=== PATIENT | male | born 1975 | race Caucasian/White ===

== ENCOUNTER 2017-12-07 10:10 | Emergency (ER) | payer MEDICAID, OTHER ==
--- NOTE | 2017-12-07 10:44 | ED Physician Documentation ---
PD HPI CHEST PAIN - Stated complaint Stated Complaint: CHEST PX - Chief complaint Chief Complaint: Cardiac - History obtained from History obtained from: Patient - History of Present Illness Timing - onset: Other (1 month ago) Timing - onset during: Rest Timing - duration: Seconds Timing - details: Abrupt onset Pain level max: 3 Pain level now: 0 Quality: Sharp Location: Left chest, Right chest Radiation: Other (non-radiating) Improved by: Nothing Worsened by: Other (nothing) Associated symptoms: No: Shortness of air, Diaphoresis, Nausea, Vomiting, Feeling faint / dizzy, General Weakness, Palpitations, Cough Similar symptoms before: Has not had sx before Recently seen: Not recently seen - Additional information Additional information: Patient states that for the past month or so he has felt "fluttering in his chest" and "electrical shocks". These last for a few seconds at a time. Currently asymptomatic. Has not seen a physician for this. No cardiac history. Does use marijuana daily for insomnia. States he is quitting smoking cigarettes and rarely uses alcohol. No medications at home. States he drinks approximately 20 ounces of coffee in the morning Review of Systems Constitutional: denies: Fever, Chills Ears: denies: Ear pain Nose: denies: Rhinorrhea / runny nose, Congestion Throat: denies: Sore throat Cardiac: denies: Chest pain / pressure Respiratory: denies: Cough GI: denies: Abdominal Pain, Nausea, Vomiting, Diarrhea : denies: Dysuria Skin: denies: Rash Musculoskeletal: denies: Neck pain, Back pain Neurologic: denies: Focal weakness, Headache PD PAST MEDICAL HISTORY - Past Medical History Past Medical History: Yes Respiratory: Asthma GI: Diverticulitis - Past Surgical History Past Surgical History: Yes General: Appendectomy, Hiatal hernia repair - Allergies Allergies/Adverse Reactions: Allergies Allergy/AdvReac Type Severity Reaction Status Date / Time No Known Drug Allergies Allergy Verified 12/07/17 10:25 - Social History Does the pt smoke?: Yes Smoking Status: Current every day smoker Does the pt drink ETOH?: Yes Does the pt have substance abuse?: No Substance Use and Type: Marijuana - Immunizations Immunizations are current?: Yes PD ED PE NORMAL - Vitals Vital signs reviewed: Yes - General General: Alert and oriented X 3, No acute distress - HEENT HEENT: Moist mucous membranes - Neck Neck: Supple, no meningeal sign - Cardiac Cardiac: RRR, No murmur, Strong equal pulses - Respiratory Respiratory: No respiratory distress, Clear bilaterally - Abdomen Abdomen: Soft, Non tender, Non distended - Derm Derm: Warm and dry, No rash - Neuro Neuro: Alert and oriented X 3 - Psych Psych: Normal mood, Normal affect Results - Vitals Vitals: Vital Signs - 24 hr 12/07/17 12/07/17 10:17 11:43 Temperature 36.8 C 36.4 C L Heart Rate 85 64 Respiratory 20 16 Rate Blood Pressure 135/83 H 104/84 H O2 Saturation 100 64 L Oxygen O2 Source Room air - EKG (time done) 1018 Rate: Rate (enter#) (84) Rhythm: NSR [place]: Normal Intervals: Other (short SC) QRS: Normal Ischemia: Normal ST segments - Labs Labs: Laboratory Tests 12/07/17 12/07/17 12/07/17 10:36 10:36 10:36 WBC 11.1 H RBC 4.57 L Hgb 14.4 Hct 43.1 MCV 94.4 H MCH 31.6 H MCHC 33.4 RDW 13.3 Plt Count 340 MPV 7.4 Neut # 6.7 H Lymph # 3.4 [facility] # 0.6 Eos # 0.3 Baso # 0.1 Absolute Nucleated RBC 0.00 Nucleated RBC % 0.0 Sodium 136 Potassium 4.2 Chloride 101 Carbon Dioxide 27 Anion Gap 8.0 BUN 12 Creatinine 0.9 Estimated GFR (MDRD) 92 Glucose 98 Calcium 9.2 Total Bilirubin 1.0 AST 20 ALT 16 Alkaline Phosphatase 48 Troponin I < 0.04 Total Protein 7.9 Albumin 4.4 Globulin 3.5 Albumin/Globulin Ratio 1.3 Lipase 34 - Rads (name of study) cxr Radiology: Prelim report reviewed, EMP read contemporaneously, See rad report ( no acute disease) PD MEDICAL DECISION MAKING - ED course Complexity details: reviewed results, re-evaluated patient, considered differential (No ST elevation AL, no aortic dissection, no PE, no tension pneumothorax, no aortic aneurysm), d/w patient ED course: Patient is a 42-year-old male who presents to the emergency department with atypical chest pain. This is been ongoing for over a month. Negative troponin. No acute lab abnormalities, EKG abnormalities or radiographic abnormalities. We will have him follow-up with his doctor for further evaluation and care. Patient counseled regarding signs and symptoms for which I believe and urgent re -evaluation would be necessary. Patient with good understanding of and agreement to plan and is comfortable going home at this time This document was made in part using voice recognition software. While efforts are made to proofread this document, sound alike and grammatical errors may occur. Discharge pulse ox was 96, not 64 Departure - Departure Disposition: Home, Self Care Clinical Impression: Chest pain Qualifiers: Chest pain type: unspecified Qualified Code(s): R07.9 - Chest pain, unspecified Condition: Good Instructions: ED Chest Pain Atypical Unkn Cause Follow-Up: your,doctor in 1 week [Other] Comments: The cause of your symptoms is unclear today. You may benefit from a Holter monitor to see if you are having any cardiac arrhythmias and this can be prescribed by your doctor. Return if you worsen. Discharge Date/Time: 12/07/17 11:44
[2017-12-07 10:46] LABS: BASOPHILS # (AUTO) 0.1 10^3/uL (0.0-0.1); BASOPHILS % (AUTO) 1.1 %; EOSINOPHILS # (AUTO) 0.3 10^3/uL (0.0-0.7); EOSINOPHILS % (AUTO) 2.8 %; HGB - HEMOGLOBIN 14.4 g/dL (14.0-18.0); LYMPHOCYTES # (AUTO) 3.4 10^3/uL (1.5-3.5); LYMPHOCYTES % (AUTO) 30.4 %; MEAN CORPUSCULAR HEMOGLOBIN 31.6 pg (27.0-31.0); MEAN CORPUSCULAR HGB CONC 33.4 g/dL (32.0-36.0); MEAN CORPUSCULAR VOLUME 94.4 fL (80.0-94.0); MEAN PLATELET VOLUME 7.4 fL (7.4-11.4); MONOCYTES # (AUTO) 0.6 10^3/uL (0.0-1.0); MONOCYTES % (AUTO) 5.1 %; NEUTROPHILS # (AUTO) 6.7 10^3/uL (1.5-6.6); NEUTROPHILS % (AUTO) 60.6 %; PLT - PLATELET COUNT 340 10^3/uL (130-450); RED BLOOD COUNT 4.57 10^6/uL (4.70-6.10); RED CELL DISTRIBUTION WIDTH 13.3 % (12.0-15.0); WHITE BLOOD COUNT 11.1 x10^3/uL (4.8-10.8)
[2017-12-07 11:00] LABS: ALBUMIN 4.4 g/dL (3.2-5.5); ALBUMIN/GLOBULIN RATIO 1.3 (1.0-2.2); CALCIUM 9.2 mg/dL (8.5-10.3); CREATININE 0.9 mg/dL (0.6-1.2); TOTAL PROTEIN 7.9 g/dL (6.7-8.2)
--- NOTE | 2017-12-07 11:13 | XRAY Report ---
EXAM: CHEST RADIOGRAPHY EXAM DATE: 12/07/2017 10:44 AM. CLINICAL HISTORY: Chest pain. COMPARISON: 08/21/2012. TECHNIQUE: 1 view. FINDINGS: Lungs/Pleura: Stable hyperinflation. No focal infiltrate or vascular congestion. Similar mild bronchi al wall thickening bilaterally. No pleural effusion or pneumothorax. Mediastinum: Normal cardiomediastinal silhouette. Bones: No fracture or significant findings identified. IMPRESSION: 1. Stable hyperinflation. 2. Chronic mild bronchial wall thickening could be seen with RAD. No consolidation. [facility] Referring Provider Line: [phone] SITE ID: [id number]
--- NOTE | 2017-12-07 11:13 | XRAY Preliminary Report ---
Exam: XR CHEST 1 VIEW X-RAY IMPRESSION: 1. Stable hyperinflation. 2. Chronic mild bronchial wall thickening could be seen with RAD. No consolidation. [facility] SITE ID: [id number]
[2017-12-07 11:44] VITALS: BP 104/84
== END 2017-12-07 11:44 | disposition home or self-care (01) ==
LOC: ED 10:10
DX: R07.89 Other chest pain (principal); G47.00 Insomnia, unspecified; F12.90 Cannabis use, unspecified, uncomplicated; J45.909 Unspecified asthma, uncomplicated; Z87.19 Personal history of other diseases of the digestive system; Z87.891 Personal history of nicotine dependence
CPT/HCPCS: 36415; 71045; 80053; 83690; 84484; 85025; 93005; 99283; 99284

== ENCOUNTER 2018-06-18 16:26 | Emergency (ER) | payer MEDICAID, OTHER ==
[2018-06-18 16:38] VITALS: BP 115/85
--- NOTE | 2018-06-18 16:51 | ED Physician Documentation ---
PD HPI LOWER EXT INJURY - Stated complaint Stated Complaint: R KNEE INJURY - Chief complaint Chief Complaint: Ext Problem - History obtained from History obtained from: Patient - History of Present Illness PD HPI LOW EXT INJURY LOCATION: Left, Knee Type of injury: Blunt / blow Where injury occurred: Work Timing - onset: Today Timing - duration: Hours Timing - details: Abrupt onset, Still present Improved by: Rest, Immobilization Worsened by: Moving, Palpating Associated symptoms: Swelling. No: Weakness, Numbness, Tingling Contributing factors: Prior ortho surgery. No: Anticoagulated Similar symptoms before: Diagnosis (patellar dislocation) Recently seen: Not recently seen - Additional information Additional information: 42-year-old male with a prior history of patellar dislocation and surgical fixation has struck himself in the medial aspect of the right patella and dislocated the patella laterally. He was able to reduce the patellar dislocation and has quite a bit of pain associated with the process. Review of Systems Constitutional: denies: Fever Eyes: denies: Decreased vision Ears: denies: Ear pain Nose: denies: Congestion Respiratory: denies: Cough GI: denies: Vomiting : denies: Dysuria PD PAST MEDICAL HISTORY - Past Medical History Respiratory: Asthma GI: Diverticulitis - Past Surgical History Past Surgical History: Yes General: Appendectomy, Hiatal hernia repair - Present Medications Home Medications: Ambulatory Orders Medication Instructions Recorded Confirmed oxyCODONE/ACET 5/325 [Percocet 5 1 - 2 each PO Q4-6H PRN #20 tablet 06/18/18 mg/325 mg] - Allergies Allergies/Adverse Reactions: Allergies Allergy/AdvReac Type Severity Reaction Status Date / Time No Known Drug Allergies Allergy Verified 06/18/18 16:37 - Social History Does the pt smoke?: Yes Smoking Status: Current every day smoker Does the pt drink ETOH?: Yes Does the pt have substance abuse?: No - Immunizations Immunizations are current?: Yes PD ED PE NORMAL - Vitals Vital signs reviewed: Yes (hypertensive diastolic mild ) - General General: Alert and oriented X 3, No acute distress, Well developed/nourished - HEENT HEENT: Atraumatic, PERRL - Respiratory Respiratory: No respiratory distress - Derm Derm: Normal color, Warm and dry, No rash - Extremities Extremities: No deformity, No edema, Other (There is tenderness to the medial aspect of the patella that causes nausea. There is no obvious deformity. The ligaments appears stable and the ROM is intact but with some pain. distal n/v is intact. ) - Neuro Neuro: Alert and oriented X 3, No motor deficit, No sensory deficit, Normal speech Eye Opening: Spontaneous Motor: Obeys Commands Verbal: Oriented GCS Score: 15 - Psych Psych: Normal mood, Normal affect Results - Vitals Vitals: Vital Signs - 24 hr 06/18/18 16:34 Temperature 36.6 C Heart Rate 79 Respiratory 20 Rate Blood Pressure 115/85 H O2 Saturation 100 Oxygen O2 Source Room air - Rads (name of study) right knee Radiology: Prelim report reviewed (Impression: Normal knee radiography.), EMP read indepedently, See rad report PD MEDICAL DECISION MAKING - ED course Complexity details: reviewed old records, reviewed results, re-evaluated patient , considered differential, d/w patient ED course: 42-year-old male with a prior history of patellar dislocation and surgical repair has dislocated his patella again. He was able to reduce the dislocation he has some significant pain associated with this. He has no evidence of fracture associated with a contusion to the patella that dislocated it and he is placed into a knee immobilizer. I have asked patient to follow-up with orthopedics and I have given him a note for limited use of the right leg for 1 week. - Sepsis Event Vital Signs: Vital Signs - 24 hr 06/18/18 16:34 Temperature 36.6 C Heart Rate 79 Respiratory 20 Rate Blood Pressure 115/85 H O2 Saturation 100 Oxygen O2 Source Room air Departure - Departure Disposition: 01 Home, Self Care Clinical Impression: Patellar dislocation Qualifiers: Encounter type: initial encounter Laterality: right Qualified Code(s): S83.004A - Unspecified dislocation of right patella, initial encounter Condition: Stable Instructions: ED Dislocation Patella Follow-Up: [facility] [Provider Group] Prescriptions: oxyCODONE/ACET 5/325 [Percocet 5 mg/325 mg] 1 - 2 each PO Q4-6H PRN #20 tablet PRN Reason: Pain Forms: Activity restrictions
--- NOTE | 2018-06-18 17:43 | XRAY Report ---
Procedure Date: 06/18/2018 Accession Number: [id number] / [id number] Procedure: XR - Knee 4 View RT CPT Code: FULL RESULT: EXAM: RIGHT KNEE RADIOGRAPHY EXAM DATE: 06/18/2018 05:14 PM. CLINICAL HISTORY: Patellar dislocation (reduced). COMPARISON: None. TECHNIQUE: 4 views. FINDINGS: Bones: Normal. No fractures or bone lesions. Joints: Normal. No effusion. No subluxations. Soft Tissues: Normal. No soft tissue swelling. IMPRESSION: Normal knee radiography. [facility]
== END 2018-06-18 18:01 | disposition home or self-care (01) ==
LOC: ED 16:26
DX: S83.004A Unspecified dislocation of right patella, initial encounter (principal); W22.8XXA Striking against or struck by other objects, initial encounter; Y99.0 Civilian activity done for income or pay; F17.200 Nicotine dependence, unspecified, uncomplicated
CPT/HCPCS: 1040M; 73564; 99283

== ENCOUNTER 2018-09-04 16:46 | Outpatient (CLI) | payer OTHER, MEDICAID ==
--- NOTE | 2018-09-05 13:23 | MRI Report ---
Reason: LATERAL DISLOCATION OF RIGHT PATELLA, MILNER Procedure Date: 09/04/2018 Accession Number: [id number] / [id number] Procedure: MRI - Knee RT W/O CPT Code: FULL RESULT: EXAM: RIGHT KNEE MRI WITHOUT CONTRAST EXAM DATE: 09/04/2018 05:36 PM. CLINICAL HISTORY: Lateral dislocation of right patella. COMPARISON: KNEE 4 VIEW RT 06/18/2018 5:06 PM. TECHNIQUE: Multiplanar, multisequence T1-weighted and fluid-sensitive sequences of the knee without contrast. Other: None. FINDINGS: Bones: Negative for fracture. Mild marrow edema anterior aspect medial femoral condyle. Articular Cartilage: Mild chondromalacia anterior aspect medial femoral condyle. Moderate focal chondromalacia medial patellar facet. Medial Meniscus: The medial meniscus is intact. Lateral Meniscus: The lateral meniscus is intact. Cruciate Ligaments: The anterior and posterior cruciate ligaments are intact. Collateral Ligaments: The medial collateral and lateral collateral ligamentous structures are intact. Tendons: The quadriceps, patellar, semimembranosus, and popliteus tendons are unremarkable. Musculature: No edema or fatty atrophy. Other: No effusion. No popliteal cyst. No loose bodies. The medial and lateral retinacula are intact. There is a suprapatellar recess soft tissue mass or synovial thickening with the curvilinear hemosiderin deposition or prior hemorrhage which measures at 2.8 cm in height, 1.6 cm in AP dimension, and 3 cm in transverse dimension. Possible prior hemorrhage. Differential considerations include pigmented villonodular synovitis. IMPRESSION: 1. Negative for meniscus tear or internal derangement. 2. No MR evidence for lateral patellar dislocation. 3. Mild bone bruise anterior aspect medial femoral condyle associated with mild chondromalacia. 4. There is a suprapatellar recess indistinct mass 3.0 x 2.8 x 1.6 cm with curvilinear low signal from hemosiderin deposition or prior hemorrhage. Differential considerations include pigmented villonodular synovitis. [facility] MUSCULOSKELETAL RADIOLOGY SECTION
== END 2018-09-04 16:47 | disposition home or self-care (01) ==
LOC: DI 16:46
PROVIDERS: ATTEND Orthopaedic Surgery Sports Medicine
DX: M94.261 Chondromalacia, right knee (principal); S70.11XA Contusion of right thigh, initial encounter; R22.41 Localized swelling, mass and lump, right lower limb

== ENCOUNTER 2018-11-13 08:00 | Outpatient (CLI) | payer MEDICAID | END 2018-11-13 23:59 | disposition home or self-care (01) | LOC: LAB.R 08:00 | PROVIDERS: ATTEND Physician Assistant Medical | DX: R10.13 Epigastric pain (principal); K92.1 Melena | CPT/HCPCS: 83013 ==

== ENCOUNTER 2018-11-16 08:00 | Outpatient (CLI) | payer MEDICAID ==
[2018-11-16 12:56] LABS: BASOPHILS % (AUTO) 0.3 %; EOSINOPHILS # (AUTO) 0.2 10^3/uL (0.0-0.7); EOSINOPHILS % (AUTO) 2.2 %; HGB - HEMOGLOBIN 14.4 g/dL (14.0-18.0); LYMPHOCYTES # (AUTO) 3.3 10^3/uL (1.5-3.5); MEAN CORPUSCULAR HEMOGLOBIN 31.2 pg (27.0-31.0); MEAN CORPUSCULAR HGB CONC 33.7 g/dL (32.0-36.0); MEAN CORPUSCULAR VOLUME 92.4 fL (80.0-94.0); MEAN PLATELET VOLUME 7.8 fL (7.4-11.4); MONOCYTES # (AUTO) 0.6 10^3/uL (0.0-1.0); MONOCYTES % (AUTO) 5.9 %; NEUTROPHILS # (AUTO) 6.2 10^3/uL (1.5-6.6); NEUTROPHILS % (AUTO) 59.6 %; PLT - PLATELET COUNT 375 10^3/uL (130-450); RED BLOOD COUNT 4.63 10^6/uL (4.70-6.10); RED CELL DISTRIBUTION WIDTH 13.3 % (12.0-15.0); WHITE BLOOD COUNT 10.3 x10^3/uL (4.8-10.8)
[2018-11-16 13:11] LABS: ALBUMIN 4.3 g/dL (3.2-5.5); ALBUMIN/GLOBULIN RATIO 1.2 (1.0-2.2); ALKALINE PHOSPHATASE 61 IU/L (42-121); ALT ALANINE AMINOTRANSFERASE 30 IU/L (10-60); AST ASPARTATE AMINOTRANSFERASE 23 IU/L (10-42); BILIRUBIN,TOTAL 1.1 mg/dL (0.2-1.0); BUN - BLOOD UREA NITROGEN 11 mg/dL (6-20); CALCIUM 9.3 mg/dL (8.5-10.3); CARBON DIOXIDE - CO2 29 mmol/L (21-32); CHLORIDE 102 mmol/L (101-111); CHOL/HDL RATIO 5.8 (<5.0); CHOLESTEROL 238 mg/dL; GFR - MDRD 81 (>89); GLUCOSE 95 mg/dL (70-100); HDL CHOLESTEROL 41 mg/dL; LDL CHOLESTEROL,CALCULATED 182 mg/dL; LDL/HDL RATIO 4.4 (<3.6); SODIUM 141 mmol/L (135-145); TOTAL PROTEIN 7.9 g/dL (6.7-8.2); VLDL CHOLESTEROL 15 mg/dL
== END 2018-11-16 23:59 | disposition home or self-care (01) ==
LOC: LAB.N 08:00
PROVIDERS: ATTEND Physician Assistant Medical
DX: K92.1 Melena (principal); R10.13 Epigastric pain; Z00.00 Encounter for general adult medical examination without abnormal findings
CPT/HCPCS: 36415; 80053; 80061; 83721; 84443; 85025

== ENCOUNTER 2019-01-16 08:00 | Outpatient (CLI) | payer MEDICAID ==
[2019-01-16 13:03] LABS: CHOL/HDL RATIO 3.5 (<5.0); CHOLESTEROL 166 mg/dL; HDL CHOLESTEROL 47 mg/dL; LDL CHOLESTEROL,CALCULATED 109 mg/dL; LDL/HDL RATIO 2.3 (<3.6); VLDL CHOLESTEROL 10 mg/dL
== END 2019-01-16 23:59 | disposition home or self-care (01) ==
LOC: LAB.N 08:00
PROVIDERS: ATTEND Physician Assistant Medical
DX: E78.5 Hyperlipidemia, unspecified (principal)
CPT/HCPCS: 36415; 80061; 83721

== ENCOUNTER 2019-09-20 13:54 | Emergency (ER) | payer BC, MEDICAID ==
[2019-09-20 14:06] VITALS: BP 117/78
[2019-09-20] MEDS ORDERED: SODIUM CHLORIDE 0.9% 1,000 ML IV ONE ×2 (14:38→16:52)
[2019-09-20 14:56] LABS: BASOPHILS % (AUTO) 0.2 %; EOSINOPHILS # (AUTO) 0.1 10^3/uL (0.0-0.7); HGB - HEMOGLOBIN 14.7 g/dL (14.0-18.0); LYMPHOCYTES # (AUTO) 3.2 10^3/uL (1.5-3.5); LYMPHOCYTES % (AUTO) 37.8 %; MEAN CORPUSCULAR HEMOGLOBIN 30.8 pg (27.0-31.0); MEAN CORPUSCULAR HGB CONC 33.2 g/dL (32.0-36.0); MEAN CORPUSCULAR VOLUME 92.7 fL (80.0-94.0); MEAN PLATELET VOLUME 9.2 fL (7.4-11.4); MONOCYTES # (AUTO) 0.4 10^3/uL (0.0-1.0); MONOCYTES % (AUTO) 4.2 %; NEUTROPHILS # (AUTO) 4.8 10^3/uL (1.5-6.6); NEUTROPHILS % (AUTO) 56.4 %; PLT - PLATELET COUNT 318 10^3/uL (130-450); RED BLOOD COUNT 4.78 10^6/uL (4.70-6.10); RED CELL DISTRIBUTION WIDTH 12.6 % (12.0-15.0); WHITE BLOOD COUNT 8.4 x10^3/uL (4.8-10.8)
[2019-09-20 15:10] LABS: ALBUMIN 4.4 g/dL (3.2-5.5); ALBUMIN/GLOBULIN RATIO 1.3 (1.0-2.2); BILIRUBIN,TOTAL 1.1 mg/dL (0.2-1.0); CALCIUM 9.5 mg/dL (8.5-10.3); CREATININE 0.9 mg/dL (0.6-1.2); TOTAL PROTEIN 7.9 g/dL (6.7-8.2)
[2019-09-20] MEDS ORDERED: KETOROLAC 30 MG/ML VIAL IVP STA (15:15)
[2019-09-20] MEDS ORDERED: ALBUTEROL NEB 2.5 MG/3 ML INH STA (15:15)
[2019-09-20] MEDS ORDERED: ONDANSETRON 4 MG/2 ML VIAL IVP STA (15:15)
--- NOTE | 2019-09-20 15:22 | ED Physician Documentation ---
History of Present Illness - Stated complaint Stated Complaint: VOMITING/HEADACHE - Chief complaint Chief Complaint: Abd Pain - History obtained from History obtained from: Patient - History of Present Illness Timing: How many weeks ago (1) Pain level max: 6 Pain level now: 5 - Additonal information Additional information: 43-year-old male started with cough, congestion and rhinorrhea last week. Also feels like his chest is tight. Has used inhalers in the past, but does not have any now. He started having vomiting and diarrhea this week. Nothing makes this better or worse. He also developed a headache today. Has not taken anything for the symptoms at home. Subjective fevers. No recent travel. No recent antibiotics. Review of Systems Nose: reports: Rhinorrhea / runny nose, Congestion Respiratory: reports: Cough GI: reports: Abdominal Pain (Crampy), Vomiting, Diarrhea Skin: denies: Rash Musculoskeletal: denies: Neck pain, Back pain Neurologic: reports: Headache (Gradual onset, holoacranial). denies: Focal weakness, Numbness, Confused PD PAST MEDICAL HISTORY - Past Medical History Respiratory: Asthma GI: Diverticulitis - Past Surgical History Past Surgical History: Yes General: Appendectomy, Hiatal hernia repair - Present Medications Home Medications: Ambulatory Orders Medication Instructions Recorded Confirmed Albuterol Sulfate [Proair Hfa 1 - 2 puffs INH Q4H PRN #1 inhaler 09/20/19 Inhaler] Ondansetron Odt [Zofran] 4 mg TL Q6H PRN #10 tablet 09/20/19 predniSONE [Deltasone] 10 mg PO [id number] #42 tab 09/20/19 - Allergies Allergies/Adverse Reactions: Allergies Allergy/AdvReac Type Severity Reaction Status Date / Time No Known Drug Allergies Allergy Verified 09/20/19 14:06 - Social History Does the pt smoke?: Yes Smoking Status: Current every day smoker Does the pt drink ETOH?: Yes Does the pt have substance abuse?: No - Immunizations Immunizations are current?: Yes - POLST Patient has POLST: No PD ED PE NORMAL - Vitals Vital signs reviewed: Yes - General General: Alert and oriented X 3, No acute distress, Well developed/nourished - HEENT HEENT: PERRL, Other (Dry lips) - Neck Neck: Supple, no meningeal sign, No adenopathy - Cardiac Cardiac: RRR, Strong equal pulses - Respiratory Respiratory: No respiratory distress, Other (Wheezing bilaterally) - Abdomen Abdomen: Soft, Non tender, Non distended - Derm Derm: Warm and dry, No rash - Neuro Neuro: Alert and oriented X 3 - Psych Psych: Normal mood, Normal affect Results - Vitals Vitals: Vital Signs - 24 hr 09/20/19 09/20/19 14:03 15:52 Temperature 36.9 C Heart Rate 74 76 Respiratory 18 29 H Rate Blood Pressure 117/78 O2 Saturation 99 Oxygen O2 Source Room air - Labs Labs: Laboratory Tests 09/20/19 09/20/19 09/20/19 14:48 14:48 15:29 WBC 8.4 RBC 4.78 Hgb 14.7 Hct 44.3 MCV 92.7 MCH 30.8 MCHC 33.2 RDW 12.6 Plt Count 318 MPV 9.2 Neut # (Auto) 4.8 Lymph # (Auto) 3.2 [place] # (Auto) 0.4 Eos # (Auto) 0.1 Baso # (Auto) 0.0 Absolute Nucleated RBC 0.00 Nucleated RBC % 0.0 Sodium 139 Potassium 4.0 Chloride 101 Carbon Dioxide 27 Anion Gap 11.0 BUN 15 Creatinine 0.9 Estimated GFR (MDRD) 92 Glucose 91 Calcium 9.5 Total Bilirubin 1.1 H AST 23 ALT 24 Alkaline Phosphatase 45 Total Protein 7.9 Albumin 4.4 Globulin 3.5 Albumin/Globulin Ratio 1.3 Lipase 28 Urine Color Urine Clarity Urine pH Ur Specific [place] Urine Protein Urine Glucose (UA) Urine Ketones Urine Occult Blood Urine Nitrite Urine Bilirubin Urine Urobilinogen Ur Leukocyte Esterase Ur Microscopic Review Urine Culture Comments Influenza A (Rapid) Negative Influenza B (Rapid) Negative 09/20/19 16:44 WBC RBC Hgb Hct MCV MCH MCHC RDW Plt Count MPV Neut # (Auto) Lymph # (Auto) [place]inger # (Auto) Eos # (Auto) Baso # (Auto) Absolute Nucleated RBC Nucleated RBC % Sodium Potassium Chloride Carbon Dioxide Anion Gap BUN Creatinine Estimated GFR (MDRD) Glucose Calcium Total Bilirubin AST ALT Alkaline Phosphatase Total Protein Albumin Globulin Albumin/Globulin Ratio Lipase Urine Color YELLOW Urine Clarity CLEAR Urine pH 7.0 Ur Specific [place] 1.010 Urine Protein NEGATIVE Urine Glucose (UA) NEGATIVE Urine Ketones 15 H Urine Occult Blood NEGATIVE Urine Nitrite NEGATIVE Urine Bilirubin NEGATIVE Urine Urobilinogen 1 (NORMAL) Ur Leukocyte Esterase NEGATIVE Ur Microscopic Review NOT INDICATED Urine Culture Comments NOT INDICATED Influenza A (Rapid) Influenza B (Rapid) - Rads (name of study) Chest x-ray Radiology: Prelim report reviewed, EMP read contemporaneously, See rad report (No acute disease) PD MEDICAL DECISION MAKING - ED course Complexity details: reviewed results, re-evaluated patient (Abdomen is soft, nontender nondistended on serial exam. Lungs have minimal residual wheezing.), considered differential, d/w patient ED course: 43-year-old male presents the emergency department what appears to be a viral syndrome. Feels better after nebulizer treatment. Will prescribe an inhaler and steroids for home. Feels better after IV fluids as well. Will prescribe Zofran for home. Will place on prednisone taper. Patient counseled regarding signs and symptoms for which I believe and urgent re-evaluation would be necessary. Patient with good understanding of and agreement to plan and is comfortable going home at this time This document was made in part using voice recognition software. While efforts are made to proofread this document, sound alike and grammatical errors may occur. Departure - Departure Disposition: 01 Home, Self Care Clinical Impression: Viral syndrome Condition: Good Instructions: ED Viral Syndrome Follow-Up: your,doctor in 1 week [Other] Prescriptions: Albuterol Sulfate [Proair Hfa Inhaler] 1 - 2 puffs INH Q4H PRN #1 inhaler PRN Reason: Shortness Of Air/Wheezing Ondansetron Odt [Zofran] 4 mg TL Q6H PRN #10 tablet PRN Reason: Nausea / Vomiting predniSONE [Deltasone] 10 mg PO [id number] #42 tab Comments: Return if you worsen. Follow-up with your doctor for further care. Your x-ray and laboratory testing do not show any acute abnormalities today. Go home and rest. Drink plenty of fluids Forms: Activity restrictions Discharge Date/Time: 09/20/19 18:36
--- NOTE | 2019-09-20 16:14 | XRAY Report ---
Reason: cough Procedure Date: 09/20/2019 Accession Number: [id number] / [id number] Procedure: XR - Chest 2 View X-Ray CPT Code: 17477 Final Report FULL RESULT: EXAM: CHEST RADIOGRAPHY EXAM DATE: 09/20/2019 03:50 PM. CLINICAL HISTORY: Cough. COMPARISON: XR CHEST PA AND LAT 08/21/2012 10:09 AM XR CHEST PA AND LAT 07/10/2012 1:11 PM. TECHNIQUE: 2 views. FINDINGS: Lungs/Pleura: Lungs are hyperinflated. Slightly coarse lung markings and hyperlucency in the lung apices suggest COPD changes, stable. No consolidation, effusion, or pneumothorax. Mediastinum: Heart and mediastinal contours are unremarkable. Other: None. IMPRESSION: No acute cardiopulmonary abnormality demonstrated. Changes related to COPD suggested. [facility]
[2019-09-20 16:57] LABS: BILIRUBIN,URINE NEGATIVE (NEGATIVE); GLUCOSE, URINE (UA) NEGATIVE (NEGATIVE); KETONES,URINE (UA) 15 mg/dL (NEGATIVE); LEUKOCYTE ESTERASE, URINE NEGATIVE (NEGATIVE); NITRITE,URINE NEGATIVE (NEGATIVE); OCCULT BLOOD,URINE NEGATIVE (NEGATIVE); PROTEIN,URINE NEGATIVE (NEGATIVE); UROBILINOGEN,URINE 1 (NORMAL) E.U./dL (NORMAL)
[2019-09-20 17:01] LABS: CLARITY,URINE CLEAR (CLEAR)
== END 2019-09-20 18:36 | disposition home or self-care (01) ==
LOC: ED 13:54
DX: B34.9 Viral infection, unspecified (principal); J45.909 Unspecified asthma, uncomplicated; F17.200 Nicotine dependence, unspecified, uncomplicated
CPT/HCPCS: 36415; 71046; 80053; 81001; 81003; 83690; 85025; 87086; 87275; 87276; 94640; 94664; 96374; 99284

== ENCOUNTER 2020-01-16 08:42 | Outpatient (CLI) | payer BC ==
[2020-01-16 12:24] LABS: BASOPHILS # (AUTO) 0.1 10^3/uL (0.0-0.1); BASOPHILS % (AUTO) 0.5 %; EOSINOPHILS # (AUTO) 0.2 10^3/uL (0.0-0.7); HGB - HEMOGLOBIN 14.5 g/dL (14.0-18.0); LYMPHOCYTES # (AUTO) 3.5 10^3/uL (1.5-3.5); LYMPHOCYTES % (AUTO) 30.2 %; MEAN CORPUSCULAR HEMOGLOBIN 30.4 pg (27.0-31.0); MEAN CORPUSCULAR HGB CONC 32.3 g/dL (32.0-36.0); MEAN CORPUSCULAR VOLUME 94.1 fL (80.0-94.0); MEAN PLATELET VOLUME 9.5 fL (7.4-11.4); MONOCYTES # (AUTO) 0.8 10^3/uL (0.0-1.0); NEUTROPHILS % (AUTO) 59.9 %; PLT - PLATELET COUNT 381 10^3/uL (130-450); RED BLOOD COUNT 4.77 10^6/uL (4.70-6.10); RED CELL DISTRIBUTION WIDTH 12.7 % (12.0-15.0); WHITE BLOOD COUNT 11.6 x10^3/uL (4.8-10.8)
[2020-01-16 12:45] LABS: ALBUMIN 4.5 g/dL (3.2-5.5); ALBUMIN/GLOBULIN RATIO 1.4 (1.0-2.2); ALKALINE PHOSPHATASE 44 IU/L (42-121); ALT ALANINE AMINOTRANSFERASE 22 IU/L (10-60); AST ASPARTATE AMINOTRANSFERASE 23 IU/L (10-42); BILIRUBIN,TOTAL 1.7 mg/dL (0.2-1.0); BUN - BLOOD UREA NITROGEN 13 mg/dL (6-20); CALCIUM 8.8 mg/dL (8.5-10.3); CARBON DIOXIDE - CO2 28 mmol/L (21-32); CHLORIDE 101 mmol/L (101-111); CHOL/HDL RATIO 4.4 (<5.0); CHOLESTEROL 200 mg/dL; CREATININE 0.9 mg/dL (0.6-1.2); GFR - MDRD 91 (>89); GLUCOSE 90 mg/dL (70-100); HDL CHOLESTEROL 45 mg/dL; LDL CHOLESTEROL,CALCULATED 145 mg/dL; LDL/HDL RATIO 3.2 (<3.6); SODIUM 137 mmol/L (135-145); TOTAL PROTEIN 7.8 g/dL (6.7-8.2); VLDL CHOLESTEROL 10 mg/dL
== END 2020-01-16 23:59 | disposition home or self-care (01) ==
LOC: LAB.N 08:42
PROVIDERS: ATTEND Physician Assistant Medical
DX: Z00.00 Encounter for general adult medical examination without abnormal findings (principal)
CPT/HCPCS: 36415; 80053; 80061; 83721; 84443; 85025

== ENCOUNTER 2020-05-21 16:07 | Outpatient (CLI) | payer BC, MEDICAID ==
[2020-05-21 19:08] LABS: BASOPHILS # (AUTO) 0.1 10^3/uL (0.0-0.1); BASOPHILS % (AUTO) 0.6 %; EOSINOPHILS # (AUTO) 0.2 10^3/uL (0.0-0.7); EOSINOPHILS % (AUTO) 2.1 %; HGB - HEMOGLOBIN 14.7 g/dL (14.0-18.0); LYMPHOCYTES # (AUTO) 3.7 10^3/uL (1.5-3.5); LYMPHOCYTES % (AUTO) 34.4 %; MEAN CORPUSCULAR HEMOGLOBIN 32.1 pg (27.0-31.0); MEAN CORPUSCULAR HGB CONC 33.6 g/dL (32.0-36.0); MEAN CORPUSCULAR VOLUME 95.6 fL (80.0-94.0); MEAN PLATELET VOLUME 9.6 fL (7.4-11.4); MONOCYTES # (AUTO) 0.6 10^3/uL (0.0-1.0); MONOCYTES % (AUTO) 5.2 %; NEUTROPHILS # (AUTO) 6.2 10^3/uL (1.5-6.6); NEUTROPHILS % (AUTO) 57.3 %; PLT - PLATELET COUNT 373 10^3/uL (130-450); RED BLOOD COUNT 4.58 10^6/uL (4.70-6.10); RED CELL DISTRIBUTION WIDTH 12.7 % (12.0-15.0); WHITE BLOOD COUNT 10.8 x10^3/uL (4.8-10.8)
[2020-05-21 19:13] LABS: RHEUMATOID FACTOR NEGATIVE (Negative)
[2020-05-21 19:34] LABS: ALBUMIN 4.9 g/dL (3.2-5.5); ALBUMIN/GLOBULIN RATIO 1.5 (1.0-2.2); ALKALINE PHOSPHATASE 47 IU/L (42-121); ALT ALANINE AMINOTRANSFERASE 12 IU/L (10-60); AST ASPARTATE AMINOTRANSFERASE 16 IU/L (10-42); BILIRUBIN,TOTAL 0.8 mg/dL (0.2-1.0); BUN - BLOOD UREA NITROGEN 14 mg/dL (6-20); CALCIUM 9.2 mg/dL (8.5-10.3); CARBON DIOXIDE - CO2 26 mmol/L (21-32); CHLORIDE 103 mmol/L (101-111); CREATININE 0.9 mg/dL (0.6-1.2); GLUCOSE 93 mg/dL (70-100); SODIUM 137 mmol/L (135-145); TOTAL PROTEIN 8.2 g/dL (6.7-8.2); URIC ACID 4.3 mg/dL (2.6-7.2)
[2020-05-21 19:39] LABS: THYROID STIMULATING HORMONE 2.53 uIU/mL (0.34-5.60)
[2020-05-21 19:41] LABS: FREE T3 3.15 pg/mL (2.5-3.9); FREE T4 (FREE THYROXINE) 0.88 ng/dL (0.58-1.64)
[2020-05-21 19:44] LABS: CRP - C-REACTIVE PROTEIN < 1.0 mg/dL (0-1.0)
[2020-05-23 13:39] LABS: ANA SCREEN NEGATIVE (NEGATIVE)
== END 2020-05-21 23:59 | disposition home or self-care (01) ==
LOC: LAB.WCP 16:07
PROVIDERS: ATTEND Family Medicine
DX: M45.9 Ankylosing spondylitis of unspecified sites in spine (principal)
CPT/HCPCS: 36415; 80053; 84439; 84443; 84481; 84550; 85025; 85651; 86038; 86140; 86430

== ENCOUNTER 2020-08-25 12:05 | Outpatient (CLI) | payer MEDICAID ==
--- NOTE | 2020-08-25 12:08 | XRAY Report ---
PROCEDURE: Chest 2 View X-Ray INDICATIONS: CHEST PAIN, ASTHMA TECHNIQUE: 2 view(s) of the chest. COMPARISON: None. FINDINGS: Surgical changes and devices: None. Lungs and pleura: No pleural effusions or pneumothorax. Lungs are clear. Mild hyperaeration with fl attening of the hemidiaphragms. Mediastinum: Mediastinal contours are normal. Heart size is normal. Bones and chest wall: No suspicious bony abnormalities. Soft tissues appear unremarkable. IMPRESSION: Chest without acute cardiopulmonary abnormalities. Hyperinflation with flattening of the hemidiaphragms compatible with history of reactive airway disease/asthma. No focal consolidations. Reviewed by: David Garduno MD on 08/25/2020 12:07 PM PDT Approved by: David Garduno MD on 08/25/2020 12:07 PM PDT Station ID: [id number]
== END 2020-08-25 23:59 | disposition home or self-care (01) ==
LOC: DI.WCP 12:05
PROVIDERS: ATTEND Physician Assistant Medical
DX: R07.9 Chest pain, unspecified (principal); J45.909 Unspecified asthma, uncomplicated; Z72.0 Tobacco use
CPT/HCPCS: 71046

== ENCOUNTER 2020-11-10 09:10 | Outpatient (CLI) | payer MEDICAID ==
--- NOTE | 2020-11-10 12:32 | CARDIAC PROCEDURE NOTE ---
DATE OF SERVICE: 11/10/2020 Physician: Merlyn Rucker MD, [facility] INDICATION: Chest pain. CARDIAC RISK FACTORS: Family history of early heart disease, male gender. PROCEDURE: After signing informed consent, the patient underwent a Dick- protocol treadmill stress test with nuclear myocardial perfusion imaging. RESTING HEART RATE: 54. PEAK HEART RATE: 150 (85% predicted maximum heart rate for age). RESTING BLOOD PRESSURE: 113/79. PEAK BLOOD PRESSURE: 203/77. The patient exercised for 11 minutes and 45 seconds on a Dick-protocol treadmill stress test. He achieved a peak heart rate of 150 (85% PMHR) and 13.5 METs. The patient had leg fatigue and moderate shortness of breath at peak and rated his perceived exertion at 19/20 at peak. The patient did develop his typical chest pain rated 2/10 in the last 2 minutes of exercise. It resolved after 1 minute of recovery. Oxygen saturation was 94%-99% on room air throughout the test. RESTING EKG: Normal sinus rhythm, borderline short TN interval of 115 milliseconds, LVH voltage, early repolarization. EKG AT PEAK: [address] depressions develop in leads II, III, aVF, and V3 through V6. SUMMARY 1. Abnormal resting EKG. 2. Borderline abnormal stress test by EKG criteria (ST segment changes) at a good level of stress achieved. 3. Good exercise tolerance. 4. Nuclear images reported separately and showed: normal tracer uptake, no fixed or reversible perfusion defects. IMPRESSION 1. Borderline abnormal stress test. RECOMMENDATIONS 1. Consider a referral to Cardiology. 2. Risk factor management and start 1 aspirin daily. cc: Danika Rodriguez PA-C TD: 11/10/2020 12:22 MTDAna
--- NOTE | 2020-11-10 15:58 | Nuclear Medicine Report ---
PROCEDURE: Rest and exercise myocardial perfusion SPECT with gated imaging and ejection fraction INDICATIONS: CHEST PAIN RADIOPHARMACEUTICAL: 14.8 mCi Tc-99m Myoview IV at rest and 43.4 mCi Tc-99m Myoview IV at peak exerc ise. Cap-dlq-hduytucj was performed. TECHNIQUE: Radiopharmaceutical was injected at peak stress test, and also at rest. SPECT images wer e obtained. SPECT myocardial perfusion images were displayed in short axis, horizontal long axis, an d vertical long axis views. Gated images were reviewed using Auto[employer] software. COMPARISON: None available. FINDINGS: Raw data: There is good myocardial labeling by radiotracer. No significant motion artifacts. Lung- to-heart ratio is 0.33 (normal is less than 0.38 for tetrafosmin tracer). Left ventricle function: Gated images demonstrate normal left ventricle wall thickening. No segment al wall motion abnormality. No transient ischemic dilation; TID is 0.90 (normal less than 1.3). The left ventricle resting end-diastolic volume is normal. Left ventricle stress ejection fraction is 6 8%; normal values are above 45%. Myocardial perfusion: There is normal distribution of activity in the left and right ventricular ankit cardium. No fixed or reversible perfusion defects. IMPRESSION: 1. Normal myocardial perfusion images. 2. Normal left ventricular volume and systolic function. 3. Please correlate with stress EKG report. PQRS ATTESTATIONS: Measure 322 - Is this imaging test primarily performed on a low-risk surgery patient for preoperative evaluation within 30 days preceding their low-risk non-cardiac surgery? Low-risk surgery is defined as cardiac or myocardial infarction less than 1%, including (but not limited to) endoscopic pr ocedures, superficial procedures, cataract surgery, and excisional breast surgery: Answer: No Measure 323 - Is this imaging test performed primarily for the monitoring of an asymptomatic patient who had percutaneous coronary intervention on the visit date or within 2 years of the visit date? An swer: No Measure 324 - Is this imaging test performed primarily for the initial detection and risk assessment on an asymptomatic, low coronary heart disease patient? Low CHD risk definition = clinicians should consider the maximum number of available patient factors used to estimate risk based on Drury (A TP III criteria), typically age, gender, diabetes, smoking status, and use of blood pressure medicati on, and integrate age appropriate estimates for missing elements, such as LDL or standard blood press ure. Answer: No Reviewed by: Agnes Herrera MD on 11/10/2020 3:57 PM PST Approved by: Agnes Herrera MD on 11/10/2020 3:57 PM PST Station ID: [id number]
== END 2020-11-10 09:11 | disposition home or self-care (01) ==
LOC: DI 09:10
PROVIDERS: ATTEND Physician Assistant Medical
DX: R94.39 Abnormal result of other cardiovascular function study (principal); Z82.49 Family history of ischemic heart disease and other diseases of the circulatory system
CPT/HCPCS: 78452; 93017; A9500

== ENCOUNTER 2020-11-20 19:43 | Outpatient (CLI) | payer MEDICAID | END 2020-11-20 19:44 | disposition home or self-care (01) | LOC: COV 19:43 | PROVIDERS: ATTEND Family Medicine | DX: R53.83 Other fatigue (principal); Z20.822 Contact with and (suspected) exposure to COVID-19; R68.83 Chills (without fever); J02.9 Acute pharyngitis, unspecified; R19.7 Diarrhea, unspecified; R11.10 Vomiting, unspecified; R09.81 Nasal congestion ==

== ENCOUNTER 2021-02-05 13:11 | Outpatient (CLI) | payer MEDICAID ==
--- NOTE | 2021-02-05 14:20 | XRAY Report ---
PROCEDURE: Hip w/Pelvis 1V RT INDICATIONS: RIGHT HIP PAIN TECHNIQUE: AP pelvis with lateral view(s) of the bilateral hip(s). COMPARISON: None. FINDINGS: Bones: No fractures or dislocations. Pelvic ring appears intact. No suspicious bony lesions. Mild periarticular osteophyte formation at the bilateral hip joints. Soft tissues: The visualized bowel gas pattern is normal. No suspicious soft tissue calcifications. IMPRESSION: Bilateral hip osteoarthritis. No acute fracture. No osseous lesion. If symptoms and/or c linical suspicion for pathology continue, further assessment with repeat plain films, or advanced gadiel ging (e.g., CT, MRI, or bone scan) is recommended for further assessment. Reviewed by: Akanksha Hartley MD on 02/05/2021 2:18 PM PDT Approved by: Akanksha Hartley MD on 02/05/2021 2:18 PM PDT Station ID: [id number]
== END 2021-02-05 23:59 | disposition home or self-care (01) ==
LOC: DI.N 13:11
PROVIDERS: ATTEND Family Medicine
DX: M25.551 Pain in right hip (principal); M16.0 Bilateral primary osteoarthritis of hip

== ENCOUNTER 2021-03-02 16:28 | Outpatient (CLI) | payer MEDICAID | END 2021-03-02 16:29 | disposition home or self-care (01) | LOC: COV 16:28 | PROVIDERS: ATTEND Surgery | DX: Z01.812 Encounter for preprocedural laboratory examination (principal); K21.9 Gastro-esophageal reflux disease without esophagitis; K92.1 Melena; Z20.822 Contact with and (suspected) exposure to COVID-19 ==

== ENCOUNTER 2021-03-05 09:45 | Day surgery (SDC) | payer MEDICAID ==
[2021-03-05] MEDS ORDERED: LACTATED RINGERS 1,000 ML IV ONE ×2 (09:59→13:52)
[2021-03-05] MEDS ORDERED: MIDAZOLAM 2 MG/2 ML VIAL ONE ×3 (12:34→13:09)
[2021-03-05] MEDS ORDERED: fentaNYL 250 MCG/5 ML VIAL ONE (12:34)
--- NOTE | 2021-03-05 12:54 | HISTORY & PHYSICAL EXAMINATION ---
Chief Complaint - Chief Complaint Chief Complaint: blood per rectum and chronic heartburn History of Present Illness - History Obtained From Records Reviewed: yes History obtained from: pt Exam Limitations: none - History of Present Illness HPI Comment/Other: chronic heartburn symptoms and more recently bloody stool, blood per rectum. Passed blood last pm with bowel prep History - Past Medical History Cardiovascular: reports: None Respiratory: reports: Asthma, Emphysema Neuro: reports: Migraines Endocrine/Autoimmune: reports: None GI: reports: Hiatal hernia, Other : reports: None HEENT: reports: Other Psych: reports: None Musculoskeletal: reports: None Derm: reports: None MRSA Hx?: No - Past Surgical History General: reports: Appendectomy, Hiatal hernia repair Ortho: reports: Other - POLST Patient has POLST: No Meds/Allgy - Home Medications Home Medications: Ambulatory Orders Medication Instructions Recorded Confirmed Albuterol Sulfate [Proair Hfa 1 - 2 puffs INH Q4H PRN #1 inhaler 09/20/19 03/04/21 Inhaler] guaiFENesin [Mucinex] 600 mg PO DAILY PM 03/04/21 03/05/21 Levocetirizine Dihydrochloride 5 mg PO DAILY 03/05/21 03/05/21 [Xyzal] - Allergies Allergies/Adverse Reactions: Allergies Allergy/AdvReac Type Severity Reaction Status Date / Time No Known Drug Allergies Allergy Verified 09/20/19 14:06 Review of Systems - Constitutional Constitutional: reports: Fatigue (10 pt ros as above otherwise unremarkable) Exam - Vital Signs Reviewed Vital Signs: Yes Vital Signs: Vital Signs x48h Temp Pulse Resp BP Pulse Ox 03/05/21 10:00 36.6 C 59 L 12 111/71 97 - Physical Exam General Appearance: positive: No acute distress, Alert Eyes Bilateral: positive: PERRL, EOMI ENT: positive: No signs of dehydration Neck: positive: No JVD Respiratory: positive: Breath sounds nml Cardiovascular: positive: Regular rate & rhythm Abdomen: positive: Non-tender, No distention Neurologic/Psychiatric: positive: Oriented x3 Conclusion/Plan - Problem List (1) GERD (gastroesophageal reflux disease) Conclusion/Plan: He has had bloody bms in addition to chronic heartburn symptoms. Plan EGD and colonoscopy. parq held and consent obtained
[2021-03-05] MEDS ORDERED: BENZOCAINE/TETRACAINE/BUTAMBEN 20 GM TOP ONE (13:06)
[2021-03-05 14:19] VITALS: BP 96/62
== END 2021-03-05 09:46 | disposition home or self-care (01) ==
LOC: SDS 09:45
PROVIDERS: ATTEND Surgery
PROC: 0DBM8ZX Excision of Descending Colon, Via Natural or Artificial Opening Endoscopic, Diagnostic (ICD-10-PCS; 2021-03-05)
PROC: 0DB38ZX Excision of Lower Esophagus, Via Natural or Artificial Opening Endoscopic, Diagnostic (ICD-10-PCS; 2021-03-05)
PROC: 0DB78ZX Excision of Stomach, Pylorus, Via Natural or Artificial Opening Endoscopic, Diagnostic (ICD-10-PCS; 2021-03-05)
PROC: 0DBK8ZX Excision of Ascending Colon, Via Natural or Artificial Opening Endoscopic, Diagnostic (ICD-10-PCS; principal; 2021-03-05 11:00)
PROC: 0DBB8ZX Excision of Ileum, Via Natural or Artificial Opening Endoscopic, Diagnostic (ICD-10-PCS; 2021-03-05 11:00)
DX: K92.1 Melena (principal); K21.9 Gastro-esophageal reflux disease without esophagitis; K64.8 Other hemorrhoids; K57.30 Diverticulosis of large intestine without perforation or abscess without bleeding; J43.9 Emphysema, unspecified
CPT/HCPCS: 43239; 45380; A9270; J3010; J7120

== ENCOUNTER 2021-12-16 12:04 | Outpatient (CLI) | payer MEDICAID ==
--- NOTE | 2021-12-16 16:21 | XRAY Report ---
PROCEDURE: Shoulder 2 View RT INDICATIONS: IMPINGEMENT SYNDROME, RIGHT SHOULDER TECHNIQUE: 2 views of the shoulder were acquired. COMPARISON: None. FINDINGS: Bones: No fractures or dislocations. No suspicious bony lesions. Visualized ribs appear intact. P eriarticular osteophyte formation at the acromioclavicular and glenohumeral joints. Soft tissues: No suspicious soft tissue calcifications. IMPRESSION: Osteoarthritis. No acute fracture. No osseous lesion. If symptoms and/or clinical suspic ion for pathology continue, further assessment with repeat plain films, or advanced imaging (e.g., CT , MRI, or bone scan) is recommended for further assessment. Reviewed by: Akanksha Hartley MD on 12/16/2021 4:19 PM PST Approved by: Akanksha Hartley MD on 12/16/2021 4:19 PM PST Station ID: [id number]
== END 2021-12-16 12:05 | disposition home or self-care (01) ==
LOC: DI.N 12:04
PROVIDERS: ATTEND Family Medicine
DX: M75.41 Impingement syndrome of right shoulder (principal); M19.011 Primary osteoarthritis, right shoulder

== ENCOUNTER 2021-12-22 09:32 | Outpatient (CLI) | payer MEDICAID | END 2021-12-22 09:33 | disposition home or self-care (01) | LOC: LAB.N 09:32 | PROVIDERS: ATTEND Family Medicine | DX: Z53.9 Procedure and treatment not carried out, unspecified reason (principal) | CPT/HCPCS: 36415; 80053; 80061; 83721; 84153; 84443; 85025 ==

== ENCOUNTER 2022-01-21 08:00 | Outpatient (CLI) | payer MEDICAID ==
--- NOTE | 2022-01-21 10:18 | XRAY Report ---
PROCEDURE: Shoulder 3 View RT INDICATIONS: SHOULDER PAIN TECHNIQUE: 4 views of the shoulder were acquired. COMPARISON: December 16, 2021. FINDINGS: BONES: No acute, displaced fracture. The joint spaces are maintained. Mild arthrosis of the AC joint with osteophytosis and joint space loss. No os acromiale. SOFT TISSUES: Persistent calcific lesions overlying the humeral head, compatible with calcific tendin opathy. No pneumothorax. IMPRESSION: 1.Rotator cuff calcific tendinopathy. Reviewed by: Eliel Brantley MD on 01/21/2022 10:16 AM PDT Approved by: Eliel Brantley MD on 01/21/2022 10:16 AM PDT Station ID: [id number]
== END 2022-01-21 23:59 | disposition home or self-care (01) ==
LOC: DI.WOS 08:00
PROVIDERS: ATTEND Physician Assistant
DX: M75.41 Impingement syndrome of right shoulder (principal); M65.811 Other synovitis and tenosynovitis, right shoulder

== ENCOUNTER 2022-07-21 12:58 | Emergency (ER) | payer OTHER, MEDICAID ==
[2022-07-21 13:03] VITALS: BP 127/83
[2022-07-21] MEDS ORDERED: TETANUS/DIPHTHERIA/PERTUSSIS 0.5 ML SYRINGE IM ONE (13:11)
[2022-07-21] MEDS ORDERED: BACITRACIN ZINC OINT 1 PACKET TOP STA (13:11)
--- NOTE | 2022-07-21 13:14 | ED Physician Documentation ---
History of Present Illness - Stated complaint Stated Complaint: R THUMB LAC - Chief complaint Chief Complaint: Laceration - Additonal information Additional information: 46-year-old male presents emergency department for evaluation of a superficial laceration on the radial side of his right thumb. Occurred while at work when he was sharpening a sawblade. Last tetanus in 2011. He is right-hand dominant. This was a work-related injury Review of Systems Constitutional: denies: Fever, Chills Respiratory: reports: Reviewed and negative Skin: reports: Abrasion (s) Musculoskeletal: reports: Reviewed and negative PD PAST MEDICAL HISTORY - Past Medical History Respiratory: Asthma Neuro: Migraines GI: Diverticulitis - Past Surgical History Past Surgical History: Yes General: Appendectomy, Hiatal hernia repair - Present Medications Home Medications: Ambulatory Orders Medication Instructions Recorded Confirmed Albuterol Sulfate [Proair Hfa 1 - 2 puffs INH Q4H PRN #1 inhaler 09/20/19 03/04/21 Inhaler] guaiFENesin [Mucinex] 600 mg PO DAILY PM 03/04/21 03/05/21 Levocetirizine Dihydrochloride 5 mg PO DAILY 03/05/21 03/05/21 [Xyzal] - Allergies Allergies/Adverse Reactions: Allergies Allergy/AdvReac Type Severity Reaction Status Date / Time No Known Drug Allergies Allergy Verified 07/21/22 13:00 - Social History Does the pt smoke?: Yes Smoking Status: Current every day smoker Does the pt drink ETOH?: Yes Does the pt have substance abuse?: No - Immunizations Immunizations are current?: Yes - POLST Patient has POLST: No PD ED PE EXPANDED - Extremities Extremities: Right finger(s) (Very superficial abrasion radial side right thumb distal tip no active bleeding. Not amenable to primary closure) Results - Vitals Vitals: Vital Signs - 24 hr 07/21/22 13:00 Temperature 36.5 C Heart Rate 90 Respiratory 16 Rate Blood Pressure 127/83 H O2 Saturation 97 Oxygen O2 Source Room air PD MEDICAL DECISION MAKING - ED course Complexity details: considered differential, d/w patient ED course: 46-year-old male presents emergency department for evaluation of a distal right thumb wound sustained a sharpening sawblade at work. This is a superficial abrasion not amenable to primary closure. Wound was thoroughly cleansed at the bedside bacitracin and simple bandage applied. Tetanus updated today in the emergency department. [employer] [id number] [place] Departure - Departure Disposition: 01 Home, Self Care Clinical Impression: Abrasion of right thumb, initial encounter Condition: Stable Record reviewed to determine appropriate education?: Yes Instructions: ED Abrasion Comments: Gatito you cut your right thumb while sharpening sawblade at work. You have a superficial abrasion that would not be able to be closed with sutures. We did update your tetanus today and should be good for the next 7 to 10 years. I recommend gently cleansing the wound with warm soap and water once or twice daily and then applying antibiotic ointment such as bacitracin or Neosporin. Return to the emergency department for any concerns of infection, fevers, redness or milky drainage Discharge Date/Time: 07/21/22 13:37
== END 2022-07-21 13:37 | disposition home or self-care (01) ==
LOC: ED 12:58
DX: S60.311A Abrasion of right thumb, initial encounter (principal); W27.0XXA Contact with workbench tool, initial encounter; Y99.0 Civilian activity done for income or pay; F17.200 Nicotine dependence, unspecified, uncomplicated; Z23 Encounter for immunization; Z71.85 Encounter for immunization safety counseling
CPT/HCPCS: 1040M; 90471; 90715; 99281; 99283; A9270

== ENCOUNTER 2022-07-26 07:06 | Outpatient (CLI) | payer MEDICAID ==
[2022-07-26] MEDS ORDERED: GADOBUTROL 7.5 MMOL/7.5 ML VIAL ONE (07:22)
[2022-07-26] MEDS ORDERED: GADOBUTROL 7.5 MMOL/7.5 ML VIAL IVP ONE (08:22)
--- NOTE | 2022-07-26 08:36 | MRI Report ---
PROCEDURE: Brain W/WO INDICATIONS: MEMORY LOSS, MIGRAINE ARAMBULA CONTRAST: IV CONTRAST: Gadavist ml: 6.6 TECHNIQUE: Noncontrast axial T1 spin echo, axial T2 fast spin echo, sagittal and axial FLAIR, coronal T2 fast sp in echo, axial gradient echo, axial diffusion and ADC through the brain. After the administration of contrast, axial and coronal T1 spin echo with fat saturation through the brain. COMPARISON: None. FINDINGS: Image quality: Excellent. CSF spaces: Basal cisterns are patent. No extra-axial fluid collections. Ventricles are normal in size and shape. Brain: No midline shift. No intracranial bleeds or masses. No abnormal intracranial enhancement. There is mild cerebral volume loss for age. There is mild periventricular white matter chronic small vessel ischemic change. The brainstem appears normal. Diffusion-weighted images demonstrate no acu te ischemic insults. No chronic ischemic insults. Normal intravascular flow voids are present. Skull and face: Calvarial marrow is normal in signal. Orbits appear normal. Sinuses: Sinuses and mastoids appear clear. IMPRESSION: No acute intracranial finding. Mild degenerative increments cerebral volume loss and slightly atrophic age-advanced chronic microvas cular ischemic changes. Reviewed by: Binu Langston MD on 07/26/2022 8:35 AM PDT Approved by: Binu Langston MD on 07/26/2022 8:35 AM PDT Station ID: [id number]
== END 2022-07-26 07:07 | disposition home or self-care (01) ==
LOC: DI 07:06
PROVIDERS: ATTEND Family Medicine
DX: R41.3 Other amnesia (principal); G31.9 Degenerative disease of nervous system, unspecified; G43.109 Migraine with aura, not intractable, without status migrainosus
CPT/HCPCS: 70553; A9585

== ENCOUNTER 2022-10-21 12:08 | Outpatient (CLI) | payer MEDICAID ==
[2022-10-21 18:27] LABS: PSA TOTAL 0.615 ng/mL (0.000-2.000)
== END 2022-10-21 12:09 | disposition home or self-care (01) ==
LOC: LAB.N 12:08
PROVIDERS: ATTEND Family Medicine
DX: E29.1 Testicular hypofunction (principal)
CPT/HCPCS: 36415; 84153

== ENCOUNTER 2022-11-03 15:04 | Outpatient (CLI) | payer MEDICAID | END 2022-11-03 15:05 | disposition home or self-care (01) | LOC: LAB.N 15:04 | PROVIDERS: ATTEND Family Medicine | DX: E29.1 Testicular hypofunction (principal) | CPT/HCPCS: 36415; 84403 ==

== ENCOUNTER 2022-12-26 13:33 | Outpatient (CLI) | payer MEDICAID ==
--- NOTE | 2022-12-26 11:17 | XRAY Report ---
PROCEDURE: Shoulder 3 View BILAT INDICATIONS: Bilateral SHOULDER PAIN TECHNIQUE: 4 views of the bilateral shoulder were acquired. COMPARISON: 01/21/2022 radiographs FINDINGS: Right side: Mild glenohumeral and mild to moderate acromioclavicular degenerative changes. Periarticu lar calcifications and calcific tendinopathy. No displaced fracture or dislocation. Left side: No displaced fracture or dislocation. Mild glenohumeral and acromioclavicular degenerative changes. IMPRESSION: Bilateral degenerative changes as above, with periarticular calcifications/calcific tendinopathy on t he right, as before. If there is high concern for further derangement, consider MRI evaluation. Reviewed by: Rex Fritz MD on 12/26/2022 11:16 AM PST Approved by: Rex Fritz MD on 12/26/2022 11:16 AM PST Station ID: [id number]
== END 2022-12-26 13:35 | disposition home or self-care (01) ==
LOC: DI.WOS 13:33
PROVIDERS: ATTEND Physician Assistant Surgical
DX: M19.011 Primary osteoarthritis, right shoulder (principal); M19.012 Primary osteoarthritis, left shoulder

== ENCOUNTER 2023-01-04 09:25 | Outpatient (CLI) | payer MEDICAID ==
--- NOTE | 2023-01-04 17:30 | MRI Report ---
PROCEDURE: SHOULDER WO - RT INDICATIONS: CALCIFIC TENDINITIS TECHNIQUE: Noncontrast oblique coronal T2 fast spin echo with fat saturation, oblique sagittal T1 spin echo and T2 fast spin echo with fat saturation, axial T1 spin echo and T2 fast spin echo with fat saturation t hrough the shoulder. COMPARISON: None. FINDINGS: Image quality: Excellent. Rotator cuff: Low-grade articular and bursal surface partial-thickness tear involving distal supraspi natus at its insertion on humeral head is seen extending to musculotendinous junction. Distal infrasp inatus and subscapularis tendinosis is noted. There is suggestion of calcification involving distal s upraspinatus at its insertion on humeral head suggestive of calcific tendinitis. No full-thickness ro tator cuff tendon rupture. No rotator cuff muscle atrophy on sagittal images. Bones and bursae: No bone marrow contusions or fractures. Moderate acromioclavicular joint osteoarth ritic changes are seen with joint space narrowing, subchondral sclerosis and marginal osteophyte form ation depressing on musculotendinous junction of supraspinatus. Small amount of joint effusion and garsia bacromial subdeltoid bursal fluid is seen. Capsule and soft tissues: There is signal abnormality and contour irregularity involving superior ant erior labrum at 12 to 2:00 position suggestive of superior anterior labral tear. The long head of the biceps tendon appears thickened. The rotator interval appears normal, without fibrosis. The coracoh umeral ligament is normal in thickness. IMPRESSION: 1. Low-grade articular and bursal surface partial-thickness tear involving distal supraspinatus exten ding to musculotendinous junction. Suggestion of calcific tendinitis involving distal supraspinatus a t its insertion on humeral head. Distal infraspinatus and subscapularis tendinosis. No full-thickness rotator cuff tendon rupture. 2. Moderate acromioclavicular joint osteophyte is. No fracture or dislocation. Small amount of subacr omial subdeltoid bursal fluid. 3. Suggestion of superior anterior labral tear at 12 to 2:00 position. 4. Proximal long head of biceps tendinosis. Reviewed by: Gurjit Douglass MD on 01/04/2023 5:29 PM PST Approved by: Gurjit Douglass MD on 01/04/2023 5:29 PM PST Station ID: [id number]
== END 2023-01-04 09:26 | disposition home or self-care (01) ==
LOC: DI 09:25
PROVIDERS: ATTEND Physician Assistant Surgical
DX: M75.111 Incomplete rotator cuff tear or rupture of right shoulder, not specified as traumatic (principal); M25.711 Osteophyte, right shoulder; M75.81 Other shoulder lesions, right shoulder

== ENCOUNTER 2023-02-01 06:10 | Day surgery (SDC) | payer MEDICAID ==
[~2023-02-01 06:10] MED LIST: ACETAMINOPHEN 500 MG TABLET PO ONE; CEFAZOLIN 2G/50ML 0.9% NS 2 GM/50 ML BAG IV ONE; CELECOXIB 100 MG CAPSULE PO ONE
[2023-02-01] MEDS ORDERED: LACTATED RINGERS 1,000 ML IV ONE ×2 (06:17→09:44)
[2023-02-01] MEDS ORDERED: EPINEPHrine 1 MG/ML AMP ONE (07:06)
[2023-02-01] MEDS ORDERED: BUPIVACAINE 0.5% PF 30 ML VIAL ONE (07:21)
[2023-02-01] MEDS ORDERED: LIDOCAINE MPF 2%-EPI 1:200000 20 ML VIAL ONE (07:21)
[2023-02-01] MEDS ORDERED: BUPIVACAINE 0.25% PF 30 ML VIAL ONE (07:21)
[2023-02-01] MEDS ORDERED: fentaNYL 100 MCG/2 ML VIAL ONE ×2 (07:28→08:48)
[2023-02-01] MEDS ORDERED: ONDANSETRON 4 MG/2 ML VIAL ONE (07:28)
[2023-02-01] MEDS ORDERED: SUGAMMADEX 200 MG/2 ML VIAL IVP ONE (07:28)
[2023-02-01] MEDS ORDERED: PROPOFOL 200 MG/20 ML VIAL IVP ONE (07:28)
[2023-02-01] MEDS ORDERED: ROCURONIUM 50 MG/5 ML VIAL ONE ×2 (07:28→08:32)
[2023-02-01] MEDS ORDERED: MIDAZOLAM 2 MG/2 ML VIAL ONE (07:28)
[2023-02-01] MEDS ORDERED: ePHEDrine 50 MG/ML VIAL IVP ONE (07:50)
[2023-02-01] MEDS ORDERED: EPINEPHrine 1 MG/ML AMP IR ONE (09:06)
[2023-02-01] MEDS ORDERED: BUPIVACAINE 0.5% PF 30 ML VIAL INFIL ONE (09:07)
--- NOTE | 2023-02-01 09:12 | ANESTHESIA ---
Pre-Anesthesia VS, & Labs - Diagnosis R shoulder calcific tendonitis - Procedure R shoulder arthroscopy with calcium deposit excision Vital Signs: Temp Pulse Resp BP Pulse Ox O2 Flow Rate 36.5 C 63 16 104/65 98 0 02/01/23 06:30 02/01/23 06:30 02/01/23 06:30 02/01/23 06:30 02/01/23 06:30 02/01/23 06:30 Height: 5 ft 11 in Weight (kg): 71.2 kg Body Mass Index: 21.9 BMI Classification: Normal - NPO >8 hours Home Medications and Allergies Home Medications: Ambulatory Orders Verapamil ER [Calan SA] 120 mg PO DAILY 01/26/23 guaiFENesin [Mucinex] 600 mg PO DAILY PM 03/04/21 Levocetirizine Dihydrochloride [Xyzal] 5 mg PO DAILY 03/05/21 Verapamil ER [Calan SA] 120 mg PO DAILY 01/26/23 Allergies/Adverse Reactions: Allergies Allergy/AdvReac Type Severity Reaction Status Date / Time No Known Drug Allergies Allergy Verified 07/21/22 13:00 Anes History & Medical History - Anesthetic History Anesthesia Complications: reports: No previous complications Family history of Anesthesia Complications: Denies Family history of Malignant Hyperthermia: Denies - Medical History Cardiovascular: reports: None Pulmonary: reports: Asthma Gastrointestinal: reports: Other Urinary: reports: None Neuro: reports: Migraines Musculoskeletal: reports: Osteoarthritis, Other Endocrine/Autoimmune: reports: None Skin: reports: None Smoking Status: Current every day smoker Psychosocial: reports: Alcohol, Cannabis - Surgical History General: reports: Appendectomy, Hiatal hernia repair, Colonoscopy Orthopedic: reports: Arthroscopic surgery Exam General: Alert, Oriented x3, Cooperative Dental: WNL Mouth Openin Fingerbreadth Neck Mobility: Normal Mallampati classification: II Thyromental Distance: 4-6 cm Respiratory: Lungs clear Cardiovascular: Regular rate Plan Anesthesia Type: General Consent for Procedure(s) Verified and Reviewed: Yes Code Status: Attempt Resuscitation ASA classification: 2-Mild systemic disease Is this case an emergency?: No
[2023-02-01] MEDS ORDERED: NALOXONE 0.4 MG/ML VIAL IVP PRN (09:13)
[2023-02-01] MEDS ORDERED: METOCLOPRAMIDE 10 MG/2 ML VIAL IVP PRN (09:13)
[2023-02-01] MEDS ORDERED: ePHEDrine 50 MG/ML VIAL IVP PRN (09:13)
[2023-02-01] MEDS ORDERED: ONDANSETRON 4 MG/2 ML VIAL IVP PRN (09:13)
[2023-02-01] MEDS ORDERED: ATROPINE ABBOJECT 1 MG/10 ML SYRINGE IVP PRN (09:13)
[2023-02-01] MEDS ORDERED: MORPHINE 2 MG/ML CARPUJECT IVP PRN (09:13)
[2023-02-01] MEDS ORDERED: fentaNYL 100 MCG/2 ML VIAL IVP PRN (09:13)
--- NOTE | 2023-02-01 09:15 | OPERATIVE REPORT ---
Operative Report - General Procedure Date: 02/01/23 Planned Procedure: Arthroscopy right shoulder, calcium deposit debridement Pre-Op Diagnosis: Calcific tendinosis right shoulder Procedure Performed: Arthroscopy right shoulder, subacromial debridement and calcium debridement Post Op Diagnosis: Same as preoperative diagnosis - Procedure Note Primary Surgeon: Slade Barone MD Secondary Surgeon: Lyndsey Zayas PAC Anesthesia Provider: Madalyn Tabor CRNA Anesthesia Technique: General ET tube Estimated Blood Loss (mL): 5 Indications: This is a 47-year-old man with chronic pain over the lateral right shoulder despite injections and therapy. He had relatively good strength with pain with resisted abduction, negative upper cut test and no discrete tenderness to acromioclavicular joint right shoulder. He had good stability of the right shoulder. His preoperative x-rays were normal with the exception of a calcium deposit near the tuberosity and cuff insertion. His MRI scan showed tendinosis and partial tearing but no complete tear of the rotator cuff or biceps.Shared decision making was performed. An informed consent was obtained for the procedure prior to the procedure at my office Findings: There is mild fraying of the anterior labrum. The articular cartilage of the glenoid and humeral head was normal. The labrum was circumferentially intact. The articular aspects of the rotator cuff insertion were completely normal from anterior to posterior. The biceps tendon appeared normal with the exception of some hyperemia over the bursal side of the tendon. There is no fraying of the biceps tendon or thickening of the biceps tendon. On the bursal side there was a partial tear about 3 to 4 mm in the rotator cuff insertion and seem to correlate with small calcium deposit. Small flecks of what appeared to be calcium were liberated with a spinal needle but it was mild. There was some subacromial bursitis present the rotator interval was normal. There was a Vacherie lesion, normal variant Complications: None - Other Other Information/Narrative: Patient was brought to the operating room. After satisfactory general anesthesia was obtained, he was placed in a semisitting position in a beachchair, headrest and arm blair. His neck was placed in a neutral position, facemask applied 2. Tach facial structures. The right shoulder and upper extremity were prepped and draped in a sterile manner in the usual fashion. A timeout procedure was performed by the entire operating room team and all were in agreement. The bony landmarks of the right shoulder were outlined with a sterile marking pen. Posterior glenohumeral arthroscopy was performed utilizing the Credorax camera and 40 degree a Bleich diagnostic arthroscope. Inflow was brought through the arthroscope using the Arthrex pump. An anterior portal was established in the safe triangle. The glenoid labrum was lightly debrided where there was some fraying anteriorly. The labrum appeared very good circumferentially. Good visualization of the cuff insertion from anterior to posterior was achieved. After glenohumeral diagnostic arthroscopy, posterior subacromial arthroscopy was performed. A lateral subacromial portal was made partially removing the subacromial bursa to expose the rotator cuff which was visualized from the posterior portal initially and then I made a posterolateral portal for the scope. Kneeling with a 18-gauge spinal needle was done near the cuff insertion site where there was some signs of tendinosis. The radiofrequency probe and shaver were used to lightly debride the cuff which was completely intact. The cuff was palpated with the probe and spinal needle there is no sign of full-thickness tear present. The incisions were closed with 3-0 nylon, dry sterile gauze bulky dressing. Sling was applied. Patient tolerated the procedure well. He did receive 2 g of Ancef. A physician drilling assistant was utilized to help with our manipulation, prepping, wound closure and help with manipulation of instruments as needed during the procedure.
[2023-02-01] MEDS ORDERED: CELECOXIB 100 MG CAPSULE PO PRN (09:42)
[2023-02-01] MEDS ORDERED: ACETAMINOPHEN 500 MG TABLET PO PRN (09:42)
[2023-02-01] MEDS ORDERED: ONDANSETRON ODT 4 MG TABLET TL PRN (09:42)
[2023-02-01] MEDS ORDERED: oxyCODONE 5 MG TABLET PO PRN (09:42)
[2023-02-01] MEDS: HYDROmorphone 0.5 MG/0.5 ML SYRINGE IVP PRN ×2 (09:54→10:13)
[2023-02-01] MEDS ORDERED: HYDROmorphone 0.5 MG/0.5 ML SYRINGE ONE ×2 (09:54→10:14)
[2023-02-01] MEDS ORDERED: LACTATED RINGERS 1,000 ML IV SCH (10:00)
[2023-02-01] MEDS ORDERED: oxyCODONE 5 MG TABLET ONE (10:56)
[2023-02-01 11:48] VITALS: BP 114/73
--- NOTE | 2023-02-01 15:15 | ANESTHESIA POST OP EVALUATION ---
Anesthesia Post Eval - Post Anesthesia Eval Vitals: Last Vital Signs Temp 36.4 C L 02/01/23 11:30 Pulse 59 L 02/01/23 11:30 Resp 16 02/01/23 11:30 BP 114/73 02/01/23 11:30 Pulse Ox 98 02/01/23 11:30 O2 Flow Rate 0 02/01/23 06:30 CV Function Including HR & BP: Stable Pain Control: Satisfactory Nausea & Vomiting: Negative Mental Status: Baseline Respiratory Status: Airway Patent Hydration Status: Satisfactory Anesthesia Complications: None
== END 2023-02-01 06:11 | disposition home or self-care (01) ==
LOC: SDS 06:10
PROVIDERS: ATTEND Orthopaedic Surgery
DX: M75.31 Calcific tendinitis of right shoulder (principal); M19.011 Primary osteoarthritis, right shoulder; F17.200 Nicotine dependence, unspecified, uncomplicated
CPT/HCPCS: 29822; A9270; C1713; J0690; J1170; J7120

== ENCOUNTER 2023-11-21 08:00 | Outpatient (CLI) | payer MEDICAID ==
--- NOTE | 2023-11-21 17:52 | XRAY Report ---
PROCEDURE: Shoulder 3 View LT INDICATIONS: LEFT SHOULDER PAIN TECHNIQUE: 3 views of the shoulder were acquired. COMPARISON: None. FINDINGS: Bones: No fractures or dislocations. No suspicious bony lesions. Visualized ribs appear intact. Soft tissues: No suspicious soft tissue calcifications. The visualized lungs are within normal limi ts. IMPRESSION: No acute bony abnormality. If pain persists with conservative management, consider repeat radiographs in 10-14 days or cross-sectional imaging. Reviewed by: Jesenia Garcia MD on 11/21/2023 5:50 PM PST Approved by: Jesenia Garcia MD on 11/21/2023 5:50 PM [facility] Station ID: [id number]
== END 2023-11-21 23:59 | disposition home or self-care (01) ==
LOC: DI.WOS 08:00
PROVIDERS: ATTEND Physician Assistant Surgical
DX: M75.42 Impingement syndrome of left shoulder (principal)

== ENCOUNTER 2024-06-06 11:06 | Emergency (ER) | payer MEDICAID ==
[2024-06-06 12:29] LABS: B. PARAPERTUSSIS- RESP PCR PAN NOT DETECTED; B. PERTUSSIS- RESP PCR PANEL NOT DETECTED; C. PNEUMONIAE- RESP PCR PANEL NOT DETECTED; CORONAVIRUS 229E-RESP PCR NOT DETECTED; CORONAVIRUS HKU1-RESP PCR NOT DETECTED; CORONAVIRUS NL63-RESP PCR NOT DETECTED; CORONAVIRUS OC43-RESP PCR NOT DETECTED; HUMAN METAPNEUMOVIRUS NOT DETECTED; INFLUENZA A- RESP PCR PANEL NOT DETECTED; INFLUENZA B - RESP PCR PANEL NOT DETECTED; M. PNEUMONIAE- RESP PCR PANEL NOT DETECTED; PARAINFLUENZA VIRUS 1 NOT DETECTED; PARAINFLUENZA VIRUS 2 NOT DETECTED; PARAINFLUENZA VIRUS 3 NOT DETECTED; PARAINFLUENZA VIRUS 4 NOT DETECTED; RHINOVIRUS/ENTEROVIRUS NOT DETECTED; RSV- RESP PCR PANEL NOT DETECTED
--- NOTE | 2024-06-06 12:30 | XRAY Report ---
PROCEDURE: Chest 2V INDICATIONS: cough TECHNIQUE: 2 views of the chest were acquired. COMPARISON: Chest x-ray 06/15/2022 FINDINGS: Surgical changes and devices: None. Lungs and pleura: No pleural effusions or pneumothorax. Lungs are clear. Mediastinum: Mediastinal contours appear normal. Heart size is normal. Bones and chest wall: No suspicious bony lesions. Overlying soft tissues appear unremarkable. IMPRESSION: No acute cardiopulmonary process. Reviewed by: Debbie Koehler MD on 06/06/2024 12:29 PM PDT Approved by: Debbie Koehler MD on 06/06/2024 12:29 PM PDT Station ID: [id number]
[2024-06-06 12:31] LABS: SARS-CoV-2 -RESP PCR PANEL DETECTED
[2024-06-06] MEDS ORDERED: IBUPROFEN 800 MG TABLET PO STA (13:08)
[2024-06-06] MEDS: ALBUTEROL 1 PUFF INH STA (13:34)
[2024-06-06] MEDS: ACETAMINOPHEN 500 MG TABLET PO STA (13:37)
[2024-06-06] MEDS: IPRATROPIUM/ALBUTEROL 3 ML NEB INH STA (13:46)
--- NOTE | 2024-06-06 13:50 | ED Physician Documentation ---
History of Present Illness - Stated complaint Stated Complaint: FEVER,SOA,SHOULDER/BACK PX - Chief complaint Chief Complaint: Resp - History obtained from History obtained from: Patient - History of Present Illness Timing: Prior to arrival - Additonal information Additional information: Patient is a 48-year-old male presenting to the emergency department with viral URI symptoms. He notes symptoms started on Monday describes cough, congestion, body aches. He denies any recent sick contacts. He notes subjective fevers but no temperature taken at home. He notes some decreased appetite but no nausea or vomiting. Denies any diarrhea. No abdominal pain. Patient has past medical history remarkable for asthma and allergies but no other significant past m edical history. He has taken Tylenol ibuprofen and his albuterol inhaler at home with minimal relief. \he denies any wheezing or leg swelling or chest pain. PD PAST MEDICAL HISTORY - Past Medical History Cardiovascular: None Respiratory: Asthma Neuro: Migraines Endocrine/Autoimmune: None GI: Other : None HEENT: Chronic vision loss, Chronic sinusitis Psych: None Musculoskeletal: Osteoarthritis, Other Derm: None - Past Surgical History Past Surgical History: Yes General: Appendectomy, Hiatal hernia repair, Colonoscopy Ortho: Arthroscopic surgery - Present Medications Home Medications: Ambulatory Orders Medication Instructions Recorded Confirmed Albuterol Sulfate [Proair Hfa 1 - 2 puffs INH Q4H PRN #1 inhaler 09/20/19 01/26/23 Inhaler] guaiFENesin [Mucinex] 600 mg PO DAILY PM 03/04/21 01/26/23 Levocetirizine Dihydrochloride 5 mg PO DAILY 03/05/21 01/26/23 [Xyzal] Verapamil ER [Calan SA] 120 mg PO DAILY 01/26/23 01/26/23 oxyCODONE [Roxicodone] 5 mg PO Q4-6H PRN #12 tablet 02/01/23 Acetaminophen [Tylenol] 650 mg PO Q6H PRN #30 tab 06/06/24 Albuterol Sulf [Ventolin Hfa 1 - 2 puffs INH Q4HR PRN #18 gm 06/06/24 Inhaler] Benzonatate [Tessalon] 100 mg PO TID #30 cap 06/06/24 - Allergies Allergies/Adverse Reactions: Allergies Allergy/AdvReac Type Severity Reaction Status Date / Time No Known Drug Allergies Allergy Verified 07/21/22 13:00 - Social History Does the pt smoke?: Yes Smoking Status: Current every day smoker Does the pt drink ETOH?: Yes Does the pt have substance abuse?: No - Immunizations Immunizations are current?: Yes - POLST Patient has POLST: No PD ED PE NORMAL - Vitals Vital signs reviewed: Yes - General General: Alert and oriented X 3 - HEENT HEENT: Atraumatic, PERRL, EOMI, Ears normal, Moist mucous membranes, Pharynx benign - Neck Neck: Supple, no meningeal sign, No adenopathy - Cardiac Cardiac: RRR, No murmur, No gallop, No rub, Strong equal pulses - Respiratory Respiratory: No respiratory distress, Clear bilaterally, Other (Minimal expiratory wheeze appreciated but no rhonchi rales or crackles on auscultation of the lungs.) - Abdomen Abdomen: Normal bowel sounds, Soft, Non tender, Non distended - Back Back: No CVA TTP - Derm Derm: Normal color, Warm and dry, No rash - Neuro Neuro: Alert and oriented X 3, 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 parapertussis DNA (PCR) NOT DETECTED Nasal Coronavir 229E PCR NOT DETECTED Nasal Coronavir HKU1 PCR NOT DETECTED Nasal Coronavir NL63 PCR NOT DETECTED Nasal Coronavir OC43 PCR NOT DETECTED Nasal Enterovir/Rhinovir PCR NOT DETECTED Nasal Influenza B PCR NOT DETECTED Nasal Influenza A PCR NOT DETECTED Nasal Parainfluen 1 PCR NOT DETECTED Nasal Parainfluen 2 PCR NOT DETECTED Nasal Parainfluen 3 PCR NOT DETECTED Nasal Parainfluen 4 PCR NOT DETECTED Nasal RSV (PCR) NOT DETECTED Nasal B.pertussis DNA PCR NOT DETECTED Nasal C.pneumoniae (PCR) NOT DETECTED Jonathan Human Metapneumo PCR NOT DETECTED Nasal M.pneumoniae (PCR) NOT DETECTED Nasal SARS-CoV-2 (PCR) DETECTED A PD Medical Decision Making - ED course Complexity details: reviewed old records, reviewed results ED course: Patient is a 48-year-old male presenting to the emergency department with shortness of breath subjective fevers that been going on since Monday patient has been taking Tylenol for his symptoms his inhaler for his history of asthma with minimal improvement. Patient denies any nausea or vomiting associate with symptoms. No recent sick contacts. Vitals stable on arrival mildly tachycardic on arrival but afebrile normotensive. Patient physical exam shows clear breath sounds on auscultation. Normal cardiac sounds on auscultation pulses intact in upper and lower extremities. Patient tested positive for COVID in triage she is given dose of Tylenol and respiratory therapy evaluated and gave albuterol inhaler as patient could not receive nebulized treatment due to COVID. Patient updated on reassuring findings chest x-ray shows no acute cardiopulmonary findings patient agreeable with discharge and feels slightly improved after Tylenol and inhaler will send Tessalon Perles new inhaler and Tylenol for patient to take at home he is already taking Mucinex for his symptoms. Patient given strict return precautions including chest pain worsening shortness of breath nausea vomiting or any other new or worsening symptoms. Patient understands and is agreeable with this plan.Vitals improved prior to discharge, tachycardia resolved Departure - Departure Disposition: Home, Self Care Clinical Impression: COVID-19, Cough, Intercostal myalgia, Viral syndrome Prescriptions: Albuterol Sulf [Ventolin Hfa Inhaler] 1 - 2 puffs INH Q4HR PRN #18 gm PRN Reason: Shortness Of Air/Wheezing Benzonatate [Tessalon] 100 mg PO TID #30 cap Acetaminophen [Tylenol] 650 mg PO Q6H PRN #30 tab PRN Reason: Pain Comments: You were seen here in the emergency department for your viral symptoms you did test positive for COVID I have sent some medications at home to help with your symptoms continue taking Tylenol and ibuprofen like you have at home as well as monitor for any worsening shortness of breath headache dizziness or lightheadedness or chest pain. Forms: PCP List
[2024-06-06 14:12] VITALS: BP 116/74; O2SAT 95
== END 2024-06-06 14:14 | disposition home or self-care (01) ==
LOC: ED 11:06
DX: U07.1 COVID-19 (principal); M79.18 Myalgia, other site; B34.9 Viral infection, unspecified; Z20.818 Contact with and (suspected) exposure to other bacterial communicable diseases; Z20.828 Contact with and (suspected) exposure to other viral communicable diseases
CPT/HCPCS: 71046; 87633; 94640; 94664; 99284; A9270